=== PATIENT | male | born 1975 | race Caucasian/White ===

== ENCOUNTER 2020-09-26 06:51 | Emergency (ER) | payer OTHER, SELFPAY ==
[2020-09-26 06:54] VITALS: BP 150/97; PULSE 76; RESP 18; TEMP 36.9; O2SAT 95; BMI 25.6
--- NOTE | 2020-09-26 07:13 | ED.VIS.LOWEX ---
HPI History of Present Illness Chief Complaint: Foreign Body Informant: patient Narrative Narrative: Patient stepped on a nail walking into work. 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 He is wearing tennis shoes when this happened. He states his last tetanus shot was 20 years ago. He is having pain between the second and third toes of the right foot which is where this occurred. He is still able to ambulate. He denies any fevers. Tetanus Immunization: >10 years PFSH PFSH no medical history Home Medications ciprofloxacin HCl 500 mg PO BID #14 tablet 09/26/20 [Rx Last Taken Unknown] Allergy/AdvReac Type Severity Reaction Status Date / Time No Known Allergies Allergy Verified 09/26/20 06:53 no significant family history no surgical history Social History Smoking Status: Current every day smoker ROS ROS ED ENT ENT ED: Denies rhinorrhea Integumentary Reports other Details: Puncture wound EXAM Physical Exam Const Vital Signs: 09/26/20 06:54 Temperature 98.4 F Temperature Source Temporal Pulse Rate 76 Respiratory Rate 18 Blood Pressure 150/97 H Blood Pressure Mean 114 Pulse Ox 95 Oxygen Delivery Method Room Air Positive well nourished and well developed General Appearance ED: well developed HEENT normocephalic and atraumatic Eyes PERRL Neck full ROM Extremity Right Lower Extremity: foot and digits Positive for other (Puncture wound noted between the second and third toes of the right foot. Bleeding is controlled. There is tenderness around this area. No erythema.) Neuro oriented x3, CN's II-XII intact bilaterally and moves all extremities Sensorium / Orientation: alert Motor Exam: strength 5/5 throughout Psych mental status grossly normal MDM MDM MDM Narrative Medical decision making narrative: The foreign body was removed at the site of where it occurred. He states it was removed in its hole. There is no retained foreign body. Patient will have his tetanus status updated. I will place him on antibiotics and give him ibuprofen. Worker's Compensation forms will be completed. Discharge Plan Triage Chief Complaint: Foreign Body ED Provider: Evaristo Moura Dx/Rx/DC Orders Clinical Impression: Puncture wound of foot, right Instructions: ED Puncture Wound (Foot) Prescriptions: New ciprofloxacin HCl [ciprofloxacin HCl] 500 MG tablet 500 mg PO BID Qty: 14 RF: 0 Primary Care Provider: NOT,DEFINED Referrals: Jim Hood DPM [STAFF PHYSICIAN] - NOT,DEFINED [Primary Care Provider] - Disposition Disposition: Home, self care
[2020-09-26] MEDS: Diphth,Pertuss(Acell),Tet Vac 0.5 ML Vial IM (07:20)
[2020-09-26] MEDS: Ibuprofen 600 MG Tablet PO (07:20)
== END 2020-09-26 07:49 | disposition home or self-care (01) ==
LOC: ED 07:32
PROVIDERS: Emergency Provider Emergency Medicine
DX: S91.331A Puncture wound without foreign body, right foot, initial encounter (principal); F17.200 Nicotine dependence, unspecified, uncomplicated; X58.XXXA Exposure to other specified factors, initial encounter
CPT/HCPCS: 90471; 90715; 99282